=== PATIENT | male | born 1985 | race Hispanic/Latino ===

== ENCOUNTER 2023-11-12 17:05 | Emergency (ER) | payer MEDICARE ==
[~2023-11-12] VITALS: Ht 172.7 cm; Wt 90.7 kg
[2023-11-12 17:45] LABS: RAPID GROUP A STREP negative (NEGATIVE)
[2023-11-12 17:53] LABS: INFLUENZA TYPE A Negative For Type A (NEGATIVE); INFLUENZA TYPE B Negative For Type B (NEGATIVE)
[2023-11-12 17:54] LABS: SARS-CoV-2, RNA, NAAT POSITIVE SARS CoV-2 (NEGATIVE)
[2023-11-12] MEDS ORDERED: IBUP-2077 PO (18:09)
[2023-11-12 19:30] VITALS: BP 110/77; PULSE 64; RESP 18; O2SAT 99
== END 2023-11-12 19:58 | disposition home or self-care (01) ==
LOC: EDH 17:05
DX: U07.1 COVID-19 (principal)
CPT/HCPCS: 87635; 87804; 87880